=== PATIENT | male | born 1950 | race Two or more races ===

== ENCOUNTER 2020-10-20 02:07 | Inpatient (IN) | payer OTHER ==
[~2020-10-20] VITALS: Ht 160 cm; Wt 57.8 kg
[2020-10-20 04:50] LABS: Basophils # (auto) 0 10 ^3/uL (0-0.2); Basophils % (auto) 0.2 % (0.0-2.0); Eosinophils # (auto) 0 10 ^3/uL (0-0.8); Hematocrit 39.4 % (41.0-53.0); Hemoglobin 13.2 g/dL (13.5-17.5); Lymphocytes # (auto) 0.6 10 ^3/uL (0.4-5.4); Lymphocytes % (auto) 5.1 % (10.0-50.0); Mean Corpuscular Hemoglobin 29.7 pg (28.0-32.0); Mean Corpuscular Hgb Conc. 33.4 g/dL (32.0-36.0); Mean Corpuscular Volume 88.8 fL (80.0-100.0); Monocytes # (auto) 1.4 10 ^3/uL (0-1.3); Monocytes % (auto) 12.2 % (0.0-12.0); Neutrophils # (auto) 9.8 10 ^3/uL (1.6-8.6); Neutrophils % (auto) 82.5 % (37.0-80.0); Nucleated Red Blood Cells % 0.1 %; Platelet Count (auto) 413 10^3/uL (140-450); Red Blood Cells 4.44 10^6/uL (4.5-5.90); White Blood Cell 11.8 10^3/uL (4.4-10.8)
[2020-10-20 05:18] LABS: Albumin 2.2 g/dL (3.4-5.0); Anion Gap 13 (5-15); BUN/Creatinine Ratio 31.4; Blood Urea Nitrogen 37 mg/dL (7-18); Calcium 7.9 mg/dL (8.5-10.1); Carbon Dioxide 25 mmol/L (21-32); Chloride 89 mmol/L (98-107); GFR African American 78 mL/min; GFR Non-African American 65 mL/min; Lactic Acid w/Reflex 3.3 mmol/L (0.4-2.0); Magnesium 2.8 mg/dL (1.6-2.6); Potassium 4.1 mmol/L (3.5-5.1); Sodium 127 mmol/L (136-145)
[2020-10-20 05:30] LABS: Alanine Aminotransferase 37 U/L (16-61); Alkaline Phosphatase 70 U/L (45-117); Aspartate Aminotransferase 44 U/L (15-37); Bilirubin, Total 0.5 mg/dL (0.2-1.0); Lactate Dehydrogenase 481 U/L (87-241); Total Protein 6.8 g/dL (6.4-8.2)
[2020-10-20] MEDS ORDERED: AZITHROMYCIN 500MG/ 250ML 250 ML IV ONE (05:30)
[2020-10-20 05:33] LABS: CRP High Sensitivity > 19 mg/dL (< 0.3); Glucose 405 mg/dL (74-106)
[2020-10-20] MEDS ORDERED: MORPHINE SULF INJ 2 MG/ML SYRINGE 1ML IV PRN (07:30)
[2020-10-20] MEDS ORDERED: DEXTROSE (50%) 50ML SYRG IV PRN ×2 (07:30→14:45)
[2020-10-20] MEDS ORDERED: SODIUM CHLORIDE 0.9% 500 ML IV ONE (07:30)
[2020-10-20] MEDS ORDERED: SODIUM CHLORIDE 0.9% 1,000 ML IV SCH ×2 (07:30→14:45)
[2020-10-20] MEDS ORDERED: ONDANSETRON HCL 4 MG/2 ML VIAL IV PRN (07:30)
[2020-10-20] MEDS ORDERED: NITROGLYCERIN 0.4 MG SL TAB SL PRN (07:30)
[2020-10-20] MEDS ORDERED: TEMAZEPAM 15 MG CAP PO PRN (07:30)
[2020-10-20] MEDS ORDERED: ACETAMINOPHEN 325 MG TAB PO PRN (07:30)
[2020-10-20] MEDS: ACCU-CHEK COMFORT CURVE STRIP VI SCH ×4 (08:34→18:03)
[2020-10-20] MEDS: InsuLIN REG 1unit/0.01ml Soln (100units/ml) SC SCH ×3 (08:41→18:00)
[2020-10-20] MEDS ORDERED: DexAMETHasone INJECTION 10 MG in D5W 5% 50 ML IV SCH (10:00)
[2020-10-20] MEDS ORDERED: ENOXAPARIN SOD 40 MG/0.4 ML SYRINGE SC SCH ×2 (10:00)
[2020-10-20] MEDS: DexAMETHasone SOD PHOS 10MG/1ML VIAL INJ IV SCH (10:22)
[2020-10-20] MEDS: ZINC SULFATE 220mg CAP or TAB PO SCH (10:22)
[2020-10-20] MEDS: FAMOTIDINE 20 MG TAB PO SCH ×2 (10:22→22:00)
[2020-10-20] MEDS: DOXYCYCLINE 100MG/250ML 250 ML IV SCH ×2 (10:22→22:00)
[2020-10-20] MEDS: ASCORBIC ACID 1,000 MG TAB PO SCH (10:22)
[2020-10-20] MEDS: CHOLECALCIFEROL (VITD3) 2,000 UNIT CAP PO SCH (10:26)
[2020-10-20] MEDS ORDERED: cefTRIAXone 1GM/50ML D5W 50 ML IV ONE (13:00)
[2020-10-20] MEDS ORDERED: IOHEXOL 350 MG/ML 100ML IJ ONE (13:54)
[2020-10-20] MEDS: ALBUTEROL SULF HFA 90MCG INH 200DOSE IN SCH ×2 (14:00→22:00)
[2020-10-20] MEDS ORDERED: ENOXAPARIN SOD 60 MG/0.6 ML SYRINGE SC SCH (18:00)
[2020-10-20] MEDS ORDERED: DexAMETHasone SOD PHOS 10MG/1ML VIAL INJ IV ONE (19:30)
[2020-10-20] MEDS: BUDESONIDE (INHALATION) 180 MCG IH IN SCH (22:00)
[2020-10-20] MEDS: INSULIN LANTUS (GLARGINE) 1 /0.01ml (100units/ml) SC SCH (22:00)
[2020-10-21 01:16] LABS: Urine Bacteria FEW /hpf (None Seen); Urine Blood Negative /uL (Negative); Urine WBC 3 /hpf (0 - 3)
[2020-10-21 05:05] LABS: Basophils # (auto) 0 10 ^3/uL (0-0.2); Basophils % (auto) 0.1 % (0.0-2.0); Eosinophils # (auto) 0 10 ^3/uL (0-0.8); Hematocrit 38.3 % (41.0-53.0); Hemoglobin 12.8 g/dL (13.5-17.5); Lymphocytes # (auto) 0.6 10 ^3/uL (0.4-5.4); Mean Corpuscular Hemoglobin 29.4 pg (28.0-32.0); Mean Corpuscular Hgb Conc. 33.5 g/dL (32.0-36.0); Mean Corpuscular Volume 87.6 fL (80.0-100.0); Monocytes % (auto) 6.8 % (0.0-12.0); Neutrophils # (auto) 13.5 10 ^3/uL (1.6-8.6); Neutrophils % (auto) 89.1 % (37.0-80.0); Nucleated Red Blood Cells % 0.1 %; Platelet Count (auto) 420 10^3/uL (140-450); Red Blood Cells 4.38 10^6/uL (4.5-5.90); White Blood Cell 15.2 10^3/uL (4.4-10.8)
[2020-10-21 05:32] LABS: Albumin 2.1 g/dL (3.4-5.0); BUN/Creatinine Ratio 39.7; Bilirubin, Total 0.5 mg/dL (0.2-1.0); Calcium 7.6 mg/dL (8.5-10.1); Potassium 3.3 mmol/L (3.5-5.1); Total Protein 6.9 g/dL (6.4-8.2)
[2020-10-21] MEDS: InsuLIN REG 1unit/0.01ml Soln (100units/ml) SC SCH ×5 (06:00→22:09)
[2020-10-21] MEDS: ACCU-CHEK COMFORT CURVE STRIP VI SCH ×5 (06:00→22:09)
[2020-10-21] MEDS: ALBUTEROL SULF HFA 90MCG INH 200DOSE IN SCH ×3 (06:00→20:00)
[2020-10-21] MEDS: cefTRIAXone 1GM/50ML D5W 50 ML IV SCH (09:00)
[2020-10-21] MEDS ORDERED: REMDESIVIR PER PHARMACY IV SCH (09:30)
[2020-10-21] MEDS ORDERED: POTASSIUM CHL 20 Meq TABLET PO SCH (10:00)
[2020-10-21] MEDS ORDERED: ENOXAPARIN SOD 40 MG/0.4 ML SYRINGE SC SCH (10:00)
[2020-10-21] MEDS: BUDESONIDE (INHALATION) 180 MCG IH IN SCH ×2 (10:00→20:00)
[2020-10-21 10:29] LABS: INR 1.06 (0.9-1.15); Partial Thromboplastin Time 25.8 sec (23.0-31.2)
[2020-10-21] MEDS: DexAMETHasone SOD PHOS 10MG/1ML VIAL INJ IV SCH (10:39)
[2020-10-21] MEDS: DOXYCYCLINE 100MG/250ML 250 ML IV SCH ×2 (10:40→21:54)
[2020-10-21] MEDS: CHOLECALCIFEROL (VITD3) 2,000 UNIT CAP PO SCH (10:40)
[2020-10-21] MEDS: ZINC SULFATE 220mg CAP or TAB PO SCH (10:40)
[2020-10-21] MEDS: ASCORBIC ACID 1,000 MG TAB PO SCH (10:40)
[2020-10-21] MEDS: FUROSEMIDE 40 MG/4 ML VIAL IV SCH (10:40)
[2020-10-21] MEDS: FAMOTIDINE 20 MG TAB PO SCH ×2 (10:40→21:53)
[2020-10-21] MEDS ORDERED: guaiFENesin-DM 100/10mg/5ml SYR PO PRN (13:00)
[2020-10-21] MEDS: ENOXAPARIN SOD 60 MG/0.6 ML SYRINGE SC SCH (15:29)
[2020-10-21 17:10] VITALS: BP 165/89
[2020-10-21 17:25] VITALS: BP 164/87
[2020-10-21] MEDS: Glucerna Carbsteady SHAKE Vanilla 8oz PO SCH (17:33)
[2020-10-21 17:55] VITALS: BP 159/80
[2020-10-21 18:25] VITALS: BP 156/87
[2020-10-21 21:00] VITALS: BP 159/93
[2020-10-21] MEDS ORDERED: DexAMETHasone SOD PHOS 10MG/1ML VIAL INJ IV SCH (22:00)
[2020-10-21] MEDS: INSULIN LANTUS (GLARGINE) 1 /0.01ml (100units/ml) SC SCH ×2 (22:00→22:12)
[2020-10-22] MEDS ORDERED: ETOMIDATE (2MG/ML) 20ML VIAL IV ONE (04:49)
[2020-10-22] MEDS ORDERED: SUCCINYLCHOLINE CHLORIDE 20 MG/ML 10ML VIAL IV ONE (04:49)
[2020-10-22 05:00] VITALS: BP 145/76
[2020-10-22] MEDS ORDERED: HALOPERIDOL LACTATE 5 MG/ML INJ VIAL ONE (05:03)
[2020-10-22] MEDS ORDERED: HALOPERIDOL LACTATE 5 MG/ML INJ VIAL IM ONE (05:15)
[2020-10-22] MEDS: ACCU-CHEK COMFORT CURVE STRIP VI SCH ×3 (06:00→17:01)
[2020-10-22] MEDS: InsuLIN REG 1unit/0.01ml Soln (100units/ml) SC SCH ×3 (06:00→17:03)
[2020-10-22] MEDS: BUDESONIDE (INHALATION) 180 MCG IH IN SCH ×2 (06:35→21:30)
[2020-10-22] MEDS: ALBUTEROL SULF HFA 90MCG INH 200DOSE IN SCH (06:35)
[2020-10-22 08:00] VITALS: BP 150/87
[2020-10-22] MEDS: Glucerna Carbsteady SHAKE Vanilla 8oz PO SCH (08:30)
[2020-10-22 09:00] VITALS: BP 150/87
[2020-10-22] MEDS ORDERED: POTASSIUM CHLORIDE 20 MEQ, LIDOCAINE 1% (LOCAL ANESTH.) 2 ML in SODIUM CHL 0.9% 100 ML IV ONE (10:45)
[2020-10-22] MEDS: cefTRIAXone 1GM/50ML D5W 50 ML IV SCH (11:26)
[2020-10-22] MEDS: FUROSEMIDE 40 MG/4 ML VIAL IV SCH (11:26)
[2020-10-22] MEDS: DOXYCYCLINE 100MG/250ML 250 ML IV SCH ×2 (11:27→22:27)
[2020-10-22 11:36] LABS: Hemoglobin 13.6 g/dL (13.5-17.5)
[2020-10-22 11:38] LABS: Hematocrit 40.3 % (41.0-53.0); Mean Corpuscular Hemoglobin 29.3 pg (28.0-32.0); Mean Corpuscular Hgb Conc. 33.8 g/dL (32.0-36.0); Mean Corpuscular Volume 86.6 fL (80.0-100.0); Platelet Count (auto) 449 10^3/uL (140-450); Red Blood Cells 4.65 10^6/uL (4.5-5.90); Red Cell Distribution Width 12.8 % (11.8-14.3); White Blood Cell 19.4 10^3/uL (4.4-10.8)
[2020-10-22 11:49] LABS: Basophils % (manual) 0 (0.0-2.0); Blast Cells 0; Eosinophils % (manual) 0 (0-7); Myelocytes % 0; Promyelocytes % 0; Reactive Lymphocytes 0
[2020-10-22 11:54] LABS: Albumin 2.2 g/dL (3.4-5.0); BUN/Creatinine Ratio 41.1; Calcium 7.8 mg/dL (8.5-10.1); Potassium 3.5 mmol/L (3.5-5.1)
[2020-10-22 12:00] VITALS: BP 135/74
[2020-10-22 12:14] LABS: Band Neutrophils % (manual) 6; Lymphocytes % (manual) 1 (10.0-50.0); Metamyelocytes % 1; Monocytes % (manual) 7 (0-12)
[2020-10-22 12:26] LABS: Bilirubin, Total 0.6 mg/dL (0.2-1.0); Total Protein 6.6 g/dL (6.4-8.2)
[2020-10-22] MEDS: DexAMETHasone SOD PHOS 10MG/1ML VIAL INJ IV SCH (13:03)
[2020-10-22] MEDS: LORazepam 2MG/ML-1ML VIAL IV PRN (13:06)
[2020-10-22] MEDS: ENOXAPARIN SOD 60 MG/0.6 ML SYRINGE SC SCH (13:26)
[2020-10-22 16:59] VITALS: BP 119/71
[2020-10-22] MEDS ORDERED: REMDESIVIR 200 MG in NS 210ml LOADING DOSE ADULT IV ONE (17:00)
[2020-10-22 22:00] VITALS: BP 150/87
[2020-10-22] MEDS: FAMOTIDINE (10MG/ML) 2ML VL IV SCH (22:27)
[2020-10-22] MEDS: INSULIN LANTUS (GLARGINE) 1 /0.01ml (100units/ml) SC SCH (22:34)
[2020-10-23] MEDS: ACCU-CHEK COMFORT CURVE STRIP VI SCH ×4 (00:38→18:05)
[2020-10-23] MEDS: InsuLIN REG 1unit/0.01ml Soln (100units/ml) SC SCH ×4 (00:39→18:06)
[2020-10-23] MEDS: ENOXAPARIN SOD 60 MG/0.6 ML SYRINGE SC SCH ×2 (02:50→14:44)
[2020-10-23] MEDS: LORazepam 2MG/ML-1ML VIAL IV PRN ×3 (04:56→19:54)
[2020-10-23 05:00] VITALS: BP 118/69
[2020-10-23] MEDS: INSULIN LANTUS (GLARGINE) 1 /0.01ml (100units/ml) SC SCH ×2 (06:30→21:37)
[2020-10-23] MEDS: BUDESONIDE (INHALATION) 180 MCG IH IN SCH ×2 (06:31→21:57)
[2020-10-23 08:35] VITALS: BP 153/90
[2020-10-23] MEDS: cefTRIAXone 1GM/50ML D5W 50 ML IV SCH (09:03)
[2020-10-23] MEDS: ALBUTEROL SULF HFA 90MCG INH 200DOSE IN PRN ×2 (09:08→21:57)
[2020-10-23] MEDS: FUROSEMIDE 40 MG/4 ML VIAL IV SCH (10:11)
[2020-10-23] MEDS: DexAMETHasone SOD PHOS 10MG/1ML VIAL INJ IV SCH (10:11)
[2020-10-23] MEDS: FAMOTIDINE (10MG/ML) 2ML VL IV SCH ×2 (10:11→21:37)
[2020-10-23] MEDS: DOXYCYCLINE 100MG/250ML 250 ML IV SCH (10:12)
[2020-10-23 10:53] LABS: Basophils # (auto) 0 10 ^3/uL (0-0.2); Basophils % (auto) 0.2 % (0.0-2.0); Eosinophils # (auto) 0 10 ^3/uL (0-0.8); Hematocrit 40.3 % (41.0-53.0); Hemoglobin 13.3 g/dL (13.5-17.5); Lymphocytes # (auto) 0.5 10 ^3/uL (0.4-5.4); Lymphocytes % (auto) 2.4 % (10.0-50.0); Mean Corpuscular Hgb Conc. 33.1 g/dL (32.0-36.0); Mean Corpuscular Volume 87.6 fL (80.0-100.0); Monocytes # (auto) 1.4 10 ^3/uL (0-1.3); Monocytes % (auto) 6.3 % (0.0-12.0); Neutrophils # (auto) 20.4 10 ^3/uL (1.6-8.6); Neutrophils % (auto) 91.1 % (37.0-80.0); Nucleated Red Blood Cells % 0.2 %; Platelet Count (auto) 443 10^3/uL (140-450); Red Cell Distribution Width 13.3 % (11.8-14.3); White Blood Cell 22.3 10^3/uL (4.4-10.8)
[2020-10-23 11:10] LABS: Albumin 2.2 g/dL (3.4-5.0); BUN/Creatinine Ratio 40.3; Calcium 7.8 mg/dL (8.5-10.1); Potassium 3.6 mmol/L (3.5-5.1)
[2020-10-23 11:13] LABS: Bilirubin, Total 0.5 mg/dL (0.2-1.0)
[2020-10-23] MEDS ORDERED: VANCOMYCIN PER PHARMACY 0 MG IV SCH (12:45)
[2020-10-23 13:25] VITALS: BP 158/88
[2020-10-23] MEDS ORDERED: cloNIDine HCL 0.1 MG TAB PO PRN (14:00)
[2020-10-23] MEDS: HALOPERIDOL LACTATE 5 MG/ML INJ VIAL IM PRN (14:04)
[2020-10-23] MEDS: VANCOMYCIN 1GM/250ML 250 ML IV SCH (14:44)
[2020-10-23 16:50] VITALS: BP 148/82
[2020-10-23] MEDS: PIPERACILLIN-TAZOB 3.375GM 100 ML IV SCH (18:31)
[2020-10-23] MEDS: REMDESIVIR 100 MG in SODIUM CHL 0.9% 250 ML IV SCH (18:31)
[2020-10-23 21:00] VITALS: BP 130/74
[2020-10-24] MEDS: PIPERACILLIN-TAZOB 3.375GM 100 ML IV SCH ×4 (00:34→18:32)
[2020-10-24] MEDS: ACCU-CHEK COMFORT CURVE STRIP VI SCH ×4 (00:34→18:15)
[2020-10-24] MEDS: InsuLIN REG 1unit/0.01ml Soln (100units/ml) SC SCH ×4 (00:46→18:00)
[2020-10-24] MEDS: ENOXAPARIN SOD 60 MG/0.6 ML SYRINGE SC SCH ×2 (01:22→14:26)
[2020-10-24] MEDS: VANCOMYCIN 1GM/250ML 250 ML IV SCH ×3 (01:22→21:02)
[2020-10-24 05:00] VITALS: BP 156/91
[2020-10-24 05:40] LABS: Basophils # (auto) 0.1 10 ^3/uL (0-0.2); Basophils % (auto) 0.5 % (0.0-2.0); Eosinophils # (auto) 0 10 ^3/uL (0-0.8); Hematocrit 38.7 % (41.0-53.0); Hemoglobin 12.7 g/dL (13.5-17.5); Lymphocytes # (auto) 0.4 10 ^3/uL (0.4-5.4); Lymphocytes % (auto) 1.6 % (10.0-50.0); Mean Corpuscular Hemoglobin 28.8 pg (28.0-32.0); Mean Corpuscular Volume 87.4 fL (80.0-100.0); Monocytes # (auto) 1.1 10 ^3/uL (0-1.3); Monocytes % (auto) 4.7 % (0.0-12.0); Neutrophils # (auto) 21.6 10 ^3/uL (1.6-8.6); Neutrophils % (auto) 93.2 % (37.0-80.0); Platelet Count (auto) 363 10^3/uL (140-450); Red Blood Cells 4.42 10^6/uL (4.5-5.90); White Blood Cell 23.2 10^3/uL (4.4-10.8)
[2020-10-24 06:01] LABS: Albumin 2.1 g/dL (3.4-5.0); BUN/Creatinine Ratio 38.7; Potassium 3.3 mmol/L (3.5-5.1)
[2020-10-24 06:04] LABS: Bilirubin, Total 0.7 mg/dL (0.2-1.0); Total Protein 6.5 g/dL (6.4-8.2)
[2020-10-24] MEDS: INSULIN LANTUS (GLARGINE) 1 /0.01ml (100units/ml) SC SCH ×2 (06:43→22:00)
[2020-10-24] MEDS: BUDESONIDE (INHALATION) 180 MCG IH IN SCH ×2 (07:25→19:10)
[2020-10-24 09:00] VITALS: BP 144/88
[2020-10-24] MEDS: FAMOTIDINE (10MG/ML) 2ML VL IV SCH ×2 (09:08→23:30)
[2020-10-24] MEDS: DexAMETHasone SOD PHOS 10MG/1ML VIAL INJ IV SCH (09:08)
[2020-10-24] MEDS: FUROSEMIDE 40 MG/4 ML VIAL IV SCH (09:15)
[2020-10-24] MEDS: LORazepam 2MG/ML-1ML VIAL IV PRN ×2 (10:12→18:33)
[2020-10-24] MEDS ORDERED: LABETALOL HCL 5 MG/ML 4ML SYRINGE IV PRN (10:30)
[2020-10-24 13:00] VITALS: BP 136/79
[2020-10-24] MEDS: HALOPERIDOL LACTATE 5 MG/ML INJ VIAL IM PRN (14:22)
[2020-10-24] MEDS: REMDESIVIR 100 MG in SODIUM CHL 0.9% 250 ML IV SCH (17:47)
[2020-10-24 18:05] VITALS: BP 128/78
[2020-10-24] MEDS: ALBUTEROL SULF HFA 90MCG INH 200DOSE IN PRN (20:40)
[2020-10-24 22:00] VITALS: BP 146/79
[2020-10-25] MEDS: ENOXAPARIN SOD 60 MG/0.6 ML SYRINGE SC SCH ×2 (02:00→13:38)
[2020-10-25] MEDS: LORazepam 2MG/ML-1ML VIAL IV PRN ×2 (02:33→16:02)
[2020-10-25 05:32] VITALS: BP 126/68
[2020-10-25] MEDS: InsuLIN REG 1unit/0.01ml Soln (100units/ml) SC SCH ×3 (06:00→17:49)
[2020-10-25] MEDS: PIPERACILLIN-TAZOB 3.375GM 100 ML IV SCH ×5 (06:00→18:38)
[2020-10-25] MEDS: ACCU-CHEK COMFORT CURVE STRIP VI SCH ×3 (06:00→17:49)
[2020-10-25 06:41] LABS: Basophils # (auto) 0 10 ^3/uL (0-0.2); Basophils % (auto) 0.2 % (0.0-2.0); Eosinophils # (auto) 0 10 ^3/uL (0-0.8); Eosinophils % (auto) 0.1 % (0.0-7.0); Hematocrit 38.1 % (41.0-53.0); Hemoglobin 12.7 g/dL (13.5-17.5); Lymphocytes # (auto) 0.5 10 ^3/uL (0.4-5.4); Lymphocytes % (auto) 2.4 % (10.0-50.0); Mean Corpuscular Hemoglobin 29.2 pg (28.0-32.0); Mean Corpuscular Hgb Conc. 33.3 g/dL (32.0-36.0); Mean Corpuscular Volume 87.8 fL (80.0-100.0); Monocytes # (auto) 1.1 10 ^3/uL (0-1.3); Monocytes % (auto) 5.1 % (0.0-12.0); Neutrophils # (auto) 20.1 10 ^3/uL (1.6-8.6); Neutrophils % (auto) 92.2 % (37.0-80.0); Platelet Count (auto) 352 10^3/uL (140-450); Red Blood Cells 4.34 10^6/uL (4.5-5.90); Red Cell Distribution Width 13.5 % (11.8-14.3); White Blood Cell 21.8 10^3/uL (4.4-10.8)
[2020-10-25] MEDS: BUDESONIDE (INHALATION) 180 MCG IH IN SCH ×2 (06:42→22:00)
[2020-10-25 07:00] LABS: Potassium 3.2 mmol/L (3.5-5.1)
[2020-10-25] MEDS: INSULIN LANTUS (GLARGINE) 1 /0.01ml (100units/ml) SC SCH (07:00)
[2020-10-25] MEDS: VANCOMYCIN 1GM/250ML 250 ML IV SCH ×2 (07:00→17:36)
[2020-10-25 07:05] LABS: BUN/Creatinine Ratio 35.7
[2020-10-25 09:00] VITALS: BP 134/76
[2020-10-25] MEDS ORDERED: DEXTROSE (50%) 50ML SYRG IV PRN (10:00)
[2020-10-25] MEDS: FAMOTIDINE (10MG/ML) 2ML VL IV SCH ×2 (10:25→22:00)
[2020-10-25] MEDS: FUROSEMIDE 40 MG/4 ML VIAL IV SCH (10:28)
[2020-10-25] MEDS: DexAMETHasone SOD PHOS 10MG/1ML VIAL INJ IV SCH (10:58)
[2020-10-25] MEDS ORDERED: ACCU-CHEK COMFORT CURVE STRIP VI SCH (12:00)
[2020-10-25] MEDS ORDERED: InsuLIN REG 1unit/0.01ml Soln (100units/ml) SC SCH (12:00)
[2020-10-25] MEDS ORDERED: TPN PER PHARMACY 0 ML IV SCH (12:45)
[2020-10-25 13:24] LABS: Phosphorus 2.6 mg/dL (2.5-4.90)
[2020-10-25 13:30] LABS: Pre Albumin 4.6 mg/dL (20.0-40.0)
[2020-10-25] MEDS: POTASSIUM CHL 20MEQ/100ML 100 ML IV SCH ×2 (13:38→15:31)
[2020-10-25] MEDS: ALBUTEROL SULF HFA 90MCG INH 200DOSE IN PRN (14:16)
[2020-10-25] MEDS: REMDESIVIR 100 MG in SODIUM CHL 0.9% 250 ML IV SCH (16:56)
[2020-10-25 17:00] VITALS: BP 148/84
[2020-10-25] MEDS ORDERED: DEXTROSE (50%) 50ML SYRG IV SCH (18:00)
[2020-10-25] MEDS ORDERED: AMINO ACID INFUSION IN D5W 2,000 ML IV NR (20:00)
[2020-10-25 22:00] VITALS: BP 154/75
[2020-10-26] MEDS: ACCU-CHEK COMFORT CURVE STRIP VI SCH ×4 (00:55→23:40)
[2020-10-26] MEDS: PIPERACILLIN-TAZOB 3.375GM 100 ML IV SCH ×5 (01:00→23:40)
[2020-10-26] MEDS: InsuLIN REG 1unit/0.01ml Soln (100units/ml) SC SCH ×4 (01:00→23:56)
[2020-10-26] MEDS: ENOXAPARIN SOD 60 MG/0.6 ML SYRINGE SC SCH ×2 (02:00→14:00)
[2020-10-26] MEDS: VANCOMYCIN 1GM/250ML 250 ML IV SCH ×3 (03:00→22:24)
[2020-10-26 05:00] VITALS: BP 156/87
[2020-10-26 06:33] LABS: Potassium 3.7 mmol/L (3.5-5.1)
[2020-10-26] MEDS: BUDESONIDE (INHALATION) 180 MCG IH IN SCH ×2 (06:38→22:00)
[2020-10-26 06:58] LABS: BUN/Creatinine Ratio 40.7; Bilirubin, Total 0.6 mg/dL (0.2-1.0); Calcium 8.5 mg/dL (8.5-10.1); Magnesium 3.2 mg/dL (1.6-2.6); Phosphorus 2.4 mg/dL (2.5-4.90); Total Protein 6.9 g/dL (6.4-8.2)
[2020-10-26 08:37] LABS: INR 1.28 (0.9-1.15); Partial Thromboplastin Time 33.3 sec (23.0-31.2)
[2020-10-26 09:00] VITALS: BP 153/78
[2020-10-26 09:18] LABS: Basophils # (auto) 0 10 ^3/uL (0-0.2); Basophils % (auto) 0.3 % (0.0-2.0); Eosinophils # (auto) 0 10 ^3/uL (0-0.8); Hematocrit 41.6 % (41.0-53.0); Hemoglobin 13.3 g/dL (13.5-17.5); Lymphocytes # (auto) 0.4 10 ^3/uL (0.4-5.4); Mean Corpuscular Hemoglobin 28.6 pg (28.0-32.0); Mean Corpuscular Hgb Conc. 31.9 g/dL (32.0-36.0); Mean Corpuscular Volume 89.7 fL (80.0-100.0); Monocytes # (auto) 1.6 10 ^3/uL (0-1.3); Monocytes % (auto) 8.5 % (0.0-12.0); Neutrophils # (auto) 16.6 10 ^3/uL (1.6-8.6); Neutrophils % (auto) 89.2 % (37.0-80.0); Platelet Count (auto) 327 10^3/uL (140-450); Red Blood Cells 4.64 10^6/uL (4.5-5.90); Red Cell Distribution Width 13.9 % (11.8-14.3); White Blood Cell 18.7 10^3/uL (4.4-10.8)
[2020-10-26] MEDS: DexAMETHasone SOD PHOS 10MG/1ML VIAL INJ IV SCH (09:48)
[2020-10-26] MEDS: FUROSEMIDE 40 MG/4 ML VIAL IV SCH (09:48)
[2020-10-26] MEDS: FAMOTIDINE (10MG/ML) 2ML VL IV SCH ×2 (09:48→21:20)
[2020-10-26] MEDS ORDERED: DEXTROSE (50%) 50ML SYRG IV PRN (12:45)
[2020-10-26] MEDS ORDERED: LIDOCAINE 1% (LOCAL ANESTH.) PF 5ml SDV ID ONE (17:15)
[2020-10-26] MEDS: REMDESIVIR 100 MG in SODIUM CHL 0.9% 250 ML IV SCH (19:38)
[2020-10-26] MEDS: SODIUM CHLOR 0.9% PF (SALINE LOCK) 10ML VIAL/SYR IV SCH (21:20)
[2020-10-26] MEDS: PPN PER PHARMACY IV NR ×8 (21:27)
[2020-10-26 22:00] VITALS: BP 152/87
[2020-10-26] MEDS: LORazepam 2MG/ML-1ML VIAL IV PRN (22:23)
[2020-10-27] VITALS (9 sets, daily range): BP systolic 146–159; BP diastolic 70–99
[2020-10-27] MEDS: ALBUTEROL SULF HFA 90MCG INH 200DOSE IN PRN (00:51)
[2020-10-27] MEDS: ENOXAPARIN SOD 60 MG/0.6 ML SYRINGE SC SCH ×2 (01:29→13:41)
[2020-10-27] MEDS: ACCU-CHEK COMFORT CURVE STRIP VI SCH ×4 (06:34→23:20)
[2020-10-27] MEDS: PIPERACILLIN-TAZOB 3.375GM 100 ML IV SCH ×3 (06:34→23:19)
[2020-10-27] MEDS: InsuLIN REG 1unit/0.01ml Soln (100units/ml) SC SCH ×4 (06:35→23:29)
[2020-10-27] MEDS: LORazepam 2MG/ML-1ML VIAL IV PRN (06:45)
[2020-10-27 06:47] LABS: Basophils # (auto) 0 10 ^3/uL (0-0.2); Basophils % (auto) 0.1 % (0.0-2.0); Eosinophils # (auto) 0 10 ^3/uL (0-0.8); Eosinophils % (auto) 0.1 % (0.0-7.0); Hematocrit 37.3 % (41.0-53.0); Hemoglobin 12.4 g/dL (13.5-17.5); Lymphocytes # (auto) 0.4 10 ^3/uL (0.4-5.4); Lymphocytes % (auto) 2.2 % (10.0-50.0); Mean Corpuscular Hemoglobin 29.4 pg (28.0-32.0); Mean Corpuscular Hgb Conc. 33.3 g/dL (32.0-36.0); Mean Corpuscular Volume 88.2 fL (80.0-100.0); Monocytes # (auto) 1.6 10 ^3/uL (0-1.3); Monocytes % (auto) 8.6 % (0.0-12.0); Neutrophils # (auto) 16.5 10 ^3/uL (1.6-8.6); Platelet Count (auto) 236 10^3/uL (140-450); Red Blood Cells 4.23 10^6/uL (4.5-5.90); Red Cell Distribution Width 13.6 % (11.8-14.3); White Blood Cell 18.6 10^3/uL (4.4-10.8)
[2020-10-27 07:08] LABS: Potassium 3.3 mmol/L (3.5-5.1)
[2020-10-27 07:30] LABS: BUN/Creatinine Ratio 44.4; Bilirubin, Total 0.8 mg/dL (0.2-1.0); Magnesium 2.9 mg/dL (1.6-2.6); Phosphorus 2.5 mg/dL (2.5-4.90); Total Protein 6.6 g/dL (6.4-8.2)
[2020-10-27] MEDS: DexAMETHasone SOD PHOS 10MG/1ML VIAL INJ IV SCH (09:04)
[2020-10-27] MEDS: VANCOMYCIN 1GM/250ML 250 ML IV SCH ×2 (09:04→19:02)
[2020-10-27] MEDS: FUROSEMIDE 40 MG/4 ML VIAL IV SCH (09:05)
[2020-10-27] MEDS: FAMOTIDINE (10MG/ML) 2ML VL IV SCH ×2 (09:05→21:11)
[2020-10-27] MEDS: SODIUM CHLOR 0.9% PF (SALINE LOCK) 10ML VIAL/SYR IV SCH ×2 (09:05→21:11)
[2020-10-27] MEDS: BUDESONIDE (INHALATION) 180 MCG IH IN SCH ×2 (09:53→22:00)
[2020-10-27] MEDS ORDERED: DEXTROSE (50%) 50ML SYRG IV SCH (12:15)
[2020-10-27] MEDS: POTASSIUM CHL 20MEQ/100ML 100 ML IV SCH ×2 (12:26→13:57)
[2020-10-27] MEDS: HALOPERIDOL LACTATE 5 MG/ML INJ VIAL IM PRN (16:00)
[2020-10-27] MEDS ORDERED: TPN PER PHARMACY IV NR ×9 (20:00)
[2020-10-27] MEDS: PPN PER PHARMACY IV NR ×8 (21:11)
[2020-10-28] MEDS: ENOXAPARIN SOD 60 MG/0.6 ML SYRINGE SC SCH ×2 (01:52→14:22)
[2020-10-28] MEDS: VANCOMYCIN 1GM/250ML 250 ML IV SCH ×2 (04:45→15:14)
[2020-10-28 05:20] VITALS: BP 144/75
[2020-10-28 05:51] LABS: Basophils # (auto) 0 10 ^3/uL (0-0.2); Basophils % (auto) 0.2 % (0.0-2.0); Eosinophils # (auto) 0 10 ^3/uL (0-0.8); Hematocrit 38.6 % (41.0-53.0); Hemoglobin 12.5 g/dL (13.5-17.5); Lymphocytes # (auto) 0.5 10 ^3/uL (0.4-5.4); Mean Corpuscular Hemoglobin 28.7 pg (28.0-32.0); Mean Corpuscular Hgb Conc. 32.3 g/dL (32.0-36.0); Mean Corpuscular Volume 88.8 fL (80.0-100.0); Monocytes # (auto) 1.4 10 ^3/uL (0-1.3); Monocytes % (auto) 7.9 % (0.0-12.0); Neutrophils # (auto) 15.3 10 ^3/uL (1.6-8.6); Neutrophils % (auto) 88.9 % (37.0-80.0); Nucleated Red Blood Cells % 0.1 %; Platelet Count (auto) 213 10^3/uL (140-450); Red Blood Cells 4.34 10^6/uL (4.5-5.90); Red Cell Distribution Width 13.5 % (11.8-14.3); White Blood Cell 17.2 10^3/uL (4.4-10.8)
[2020-10-28 06:11] LABS: Potassium 3.4 mmol/L (3.5-5.1)
[2020-10-28] MEDS: PIPERACILLIN-TAZOB 3.375GM 100 ML IV SCH ×3 (06:11→17:59)
[2020-10-28] MEDS: ACCU-CHEK COMFORT CURVE STRIP VI SCH ×3 (06:11→18:01)
[2020-10-28 06:22] LABS: BUN/Creatinine Ratio 40.2; Bilirubin, Total 0.8 mg/dL (0.2-1.0); Calcium 8.2 mg/dL (8.5-10.1); Magnesium 2.7 mg/dL (1.6-2.6); Phosphorus 2.9 mg/dL (2.5-4.90); Total Protein 6.8 g/dL (6.4-8.2)
[2020-10-28] MEDS: InsuLIN REG 1unit/0.01ml Soln (100units/ml) SC SCH ×3 (06:24→18:00)
[2020-10-28] MEDS: ALBUTEROL SULF HFA 90MCG INH 200DOSE IN PRN ×2 (07:25→19:17)
[2020-10-28 09:00] VITALS: BP 120/66
[2020-10-28] MEDS: BUDESONIDE (INHALATION) 180 MCG IH IN SCH ×2 (09:31→19:17)
[2020-10-28] MEDS: DexAMETHasone SOD PHOS 10MG/1ML VIAL INJ IV SCH (10:10)
[2020-10-28] MEDS: FAMOTIDINE (10MG/ML) 2ML VL IV SCH ×2 (10:12→21:12)
[2020-10-28] MEDS: FUROSEMIDE 40 MG/4 ML VIAL IV SCH (10:12)
[2020-10-28] MEDS: SODIUM CHLOR 0.9% PF (SALINE LOCK) 10ML VIAL/SYR IV SCH ×2 (10:13→21:02)
[2020-10-28] MEDS: POTASSIUM CHL 20MEQ/100ML 100 ML IV SCH ×2 (11:05→14:22)
[2020-10-28] MEDS: NYSTATIN (MOUTH-THROAT) 500,000 UNITS/5 ML SUSP MT SCH ×3 (12:10→21:02)
[2020-10-28 12:43] VITALS: BP 130/77
[2020-10-28] MEDS: METOCLOPRAMIDE HCL 5MG/ml INJ 2ml VIAL IV SCH ×2 (14:22→17:59)
[2020-10-28 17:00] VITALS: BP 141/78
[2020-10-28] MEDS ORDERED: TPN PER PHARMACY IV NR ×8 (20:00)
[2020-10-28 22:00] VITALS: BP 132/66
[2020-10-29] MEDS: ACCU-CHEK COMFORT CURVE STRIP VI SCH ×4 (00:45→17:01)
[2020-10-29] MEDS: PIPERACILLIN-TAZOB 3.375GM 100 ML IV SCH ×2 (00:45→05:53)
[2020-10-29] MEDS: METOCLOPRAMIDE HCL 5MG/ml INJ 2ml VIAL IV SCH ×2 (00:45→05:53)
[2020-10-29] MEDS: VANCOMYCIN 1GM/250ML 250 ML IV SCH (01:32)
[2020-10-29] MEDS: ENOXAPARIN SOD 60 MG/0.6 ML SYRINGE SC SCH (02:00)
[2020-10-29 04:52] VITALS: BP 127/71
[2020-10-29] MEDS: NYSTATIN (MOUTH-THROAT) 500,000 UNITS/5 ML SUSP MT SCH ×4 (05:53→21:48)
[2020-10-29 05:58] LABS: Basophils # (auto) 0 10 ^3/uL (0-0.2); Basophils % (auto) 0.2 % (0.0-2.0); Eosinophils # (auto) 0 10 ^3/uL (0-0.8); Eosinophils % (auto) 0.1 % (0.0-7.0); Hematocrit 40.6 % (41.0-53.0); Hemoglobin 12.1 g/dL (13.5-17.5); Lymphocytes # (auto) 0.7 10 ^3/uL (0.4-5.4); Lymphocytes % (auto) 3.6 % (10.0-50.0); Mean Corpuscular Hemoglobin 29.8 pg (28.0-32.0); Mean Corpuscular Hgb Conc. 29.7 g/dL (32.0-36.0); Mean Corpuscular Volume 100.2 fL (80.0-100.0); Monocytes # (auto) 1.3 10 ^3/uL (0-1.3); Neutrophils # (auto) 16.4 10 ^3/uL (1.6-8.6); Neutrophils % (auto) 89.1 % (37.0-80.0); Nucleated Red Blood Cells % 0.1 %; Platelet Count (auto) 227 10^3/uL (140-450); Red Blood Cells 4.05 10^6/uL (4.5-5.90); Red Cell Distribution Width 15.2 % (11.8-14.3); White Blood Cell 18.4 10^3/uL (4.4-10.8)
[2020-10-29] MEDS: InsuLIN REG 1unit/0.01ml Soln (100units/ml) SC SCH ×4 (06:08→17:43)
[2020-10-29 08:26] LABS: Potassium 3.5 mmol/L (3.5-5.1)
[2020-10-29 08:32] LABS: BUN/Creatinine Ratio 37.2
[2020-10-29 08:33] LABS: Albumin 1.8 g/dL (3.4-5.0); Bilirubin, Total 0.7 mg/dL (0.2-1.0); Magnesium 2.7 mg/dL (1.6-2.6); Phosphorus 2.4 mg/dL (2.5-4.90); Total Protein 6.5 g/dL (6.4-8.2)
[2020-10-29 10:00] VITALS: BP 116/60
[2020-10-29] MEDS ORDERED: SODIUM PHOSP 20MEQ(15MMOL) IN NS 100 ML IV ONE (10:00)
[2020-10-29] MEDS: BUDESONIDE (INHALATION) 180 MCG IH IN SCH ×2 (10:00→19:28)
[2020-10-29] MEDS: FAMOTIDINE (10MG/ML) 2ML VL IV SCH ×2 (11:15→21:48)
[2020-10-29] MEDS: FUROSEMIDE 40 MG/4 ML VIAL IV SCH (11:17)
[2020-10-29] MEDS: DexAMETHasone SOD PHOS 10MG/1ML VIAL INJ IV SCH (11:18)
[2020-10-29] MEDS: SODIUM CHLOR 0.9% PF (SALINE LOCK) 10ML VIAL/SYR IV SCH ×2 (11:18→21:48)
[2020-10-29] MEDS: MEROPENEM 1GM IVPB 100 ML IV SCH ×2 (13:29→19:49)
[2020-10-29 14:00] VITALS: BP 106/57
[2020-10-29 17:00] VITALS: BP 110/62
[2020-10-29] MEDS: ALBUTEROL SULF HFA 90MCG INH 200DOSE IN PRN (19:27)
[2020-10-29] MEDS ORDERED: TPN PER PHARMACY IV NR ×8 (20:00)
[2020-10-29] MEDS: LINEZOLID 600MG/300ML 300 ML IV SCH (21:48)
[2020-10-29 22:00] VITALS: BP 110/59
[2020-10-30] MEDS: ACCU-CHEK COMFORT CURVE STRIP VI SCH ×4 (00:37→17:39)
[2020-10-30] MEDS: InsuLIN REG 1unit/0.01ml Soln (100units/ml) SC SCH ×4 (00:40→17:41)
[2020-10-30] MEDS: MEROPENEM 1GM IVPB 100 ML IV SCH ×3 (04:58→20:31)
[2020-10-30 05:17] VITALS: BP 129/76
[2020-10-30] MEDS: NYSTATIN (MOUTH-THROAT) 500,000 UNITS/5 ML SUSP MT SCH ×4 (05:59→22:24)
[2020-10-30] MEDS: ALBUTEROL SULF HFA 90MCG INH 200DOSE IN PRN (06:31)
[2020-10-30] MEDS: BUDESONIDE (INHALATION) 180 MCG IH IN SCH ×2 (06:31→21:34)
[2020-10-30 07:16] LABS: Basophils # (auto) 0 10 ^3/uL (0-0.2); Basophils % (auto) 0.1 % (0.0-2.0); Eosinophils # (auto) 0 10 ^3/uL (0-0.8); Eosinophils % (auto) 0.1 % (0.0-7.0); Hematocrit 39.5 % (41.0-53.0); Lymphocytes # (auto) 0.9 10 ^3/uL (0.4-5.4); Lymphocytes % (auto) 3.8 % (10.0-50.0); Mean Corpuscular Hemoglobin 29.3 pg (28.0-32.0); Mean Corpuscular Volume 88.8 fL (80.0-100.0); Monocytes # (auto) 1.3 10 ^3/uL (0-1.3); Monocytes % (auto) 5.5 % (0.0-12.0); Neutrophils # (auto) 21.9 10 ^3/uL (1.6-8.6); Neutrophils % (auto) 90.5 % (37.0-80.0); Nucleated Red Blood Cells % 0.1 %; Platelet Count (auto) 214 10^3/uL (140-450); Red Blood Cells 4.44 10^6/uL (4.5-5.90); Red Cell Distribution Width 13.6 % (11.8-14.3); White Blood Cell 24.3 10^3/uL (4.4-10.8)
[2020-10-30 07:44] LABS: Potassium 3.7 mmol/L (3.5-5.1)
[2020-10-30 07:55] LABS: Albumin 1.8 g/dL (3.4-5.0); BUN/Creatinine Ratio 43.5; Bilirubin, Total 0.5 mg/dL (0.2-1.0); Calcium 8.1 mg/dL (8.5-10.1); Magnesium 2.8 mg/dL (1.6-2.6); Phosphorus 3.5 mg/dL (2.5-4.90); Total Protein 6.5 g/dL (6.4-8.2)
[2020-10-30 08:41] VITALS: BP 120/66
[2020-10-30] MEDS: FAMOTIDINE (10MG/ML) 2ML VL IV SCH ×2 (10:01→22:24)
[2020-10-30] MEDS: ENOXAPARIN SOD 40 MG/0.4 ML SYRINGE SC SCH (10:01)
[2020-10-30] MEDS: SODIUM CHLOR 0.9% PF (SALINE LOCK) 10ML VIAL/SYR IV SCH ×2 (10:01→22:25)
[2020-10-30] MEDS: LINEZOLID 600MG/300ML 300 ML IV SCH ×2 (10:01→22:25)
[2020-10-30 11:33] LABS: Urine Bacteria NONE SEEN /hpf (None Seen); Urine Blood 1+ /uL (Negative); Urine WBC 16 /hpf (0 - 3)
[2020-10-30 12:49] VITALS: BP 125/69
[2020-10-30] MEDS: metroNIDAZOLE 500MG/100ML 100 ML IV SCH ×2 (14:30→22:25)
[2020-10-30 17:03] VITALS: BP 123/66
[2020-10-30] MEDS ORDERED: TPN PER PHARMACY IV NR ×9 (20:00)
[2020-10-30 20:49] VITALS: BP 102/60
[2020-10-31] MEDS: InsuLIN REG 1unit/0.01ml Soln (100units/ml) SC SCH ×4 (00:13→17:34)
[2020-10-31] MEDS: ACCU-CHEK COMFORT CURVE STRIP VI SCH ×4 (00:18→17:33)
[2020-10-31] MEDS: ALBUTEROL SULF HFA 90MCG INH 200DOSE IN PRN ×2 (01:17→23:36)
[2020-10-31] MEDS: MEROPENEM 1GM IVPB 100 ML IV SCH ×3 (04:28→20:00)
[2020-10-31 05:00] VITALS: BP 127/69
[2020-10-31] MEDS: metroNIDAZOLE 500MG/100ML 100 ML IV SCH (06:06)
[2020-10-31] MEDS: NYSTATIN (MOUTH-THROAT) 500,000 UNITS/5 ML SUSP MT SCH ×4 (06:07→22:14)
[2020-10-31 06:55] LABS: Basophils # (auto) 0.1 10 ^3/uL (0-0.2); Basophils % (auto) 0.2 % (0.0-2.0); Eosinophils # (auto) 0.2 10 ^3/uL (0-0.8); Eosinophils % (auto) 0.6 % (0.0-7.0); Hematocrit 37.4 % (41.0-53.0); Hemoglobin 12.1 g/dL (13.5-17.5); Lymphocytes # (auto) 0.7 10 ^3/uL (0.4-5.4); Lymphocytes % (auto) 2.9 % (10.0-50.0); Mean Corpuscular Hgb Conc. 32.3 g/dL (32.0-36.0); Mean Corpuscular Volume 89.9 fL (80.0-100.0); Monocytes # (auto) 1.1 10 ^3/uL (0-1.3); Monocytes % (auto) 4.5 % (0.0-12.0); Neutrophils # (auto) 22.9 10 ^3/uL (1.6-8.6); Neutrophils % (auto) 91.8 % (37.0-80.0); Platelet Count (auto) 167 10^3/uL (140-450); Red Blood Cells 4.16 10^6/uL (4.5-5.90); Red Cell Distribution Width 13.8 % (11.8-14.3)
[2020-10-31] MEDS: BUDESONIDE (INHALATION) 180 MCG IH IN SCH ×2 (07:04→22:09)
[2020-10-31 07:22] LABS: Potassium 3.6 mmol/L (3.5-5.1)
[2020-10-31 07:25] LABS: Magnesium 2.4 mg/dL (1.6-2.6); Phosphorus 2.4 mg/dL (2.5-4.90)
[2020-10-31 07:45] LABS: Albumin 1.6 g/dL (3.4-5.0); BUN/Creatinine Ratio 40.5; Bilirubin, Total 0.5 mg/dL (0.2-1.0); Calcium 7.8 mg/dL (8.5-10.1); Total Protein 6.1 g/dL (6.4-8.2)
[2020-10-31 08:59] VITALS: BP 123/76
[2020-10-31] MEDS ORDERED: POTASSIUM PHOSPHATE 26.4 MEQ in SODIUM CHL 0.9% 100 ML IV ONE (09:30)
[2020-10-31] MEDS: FAMOTIDINE (10MG/ML) 2ML VL IV SCH ×2 (11:23→22:14)
[2020-10-31] MEDS: SODIUM CHLOR 0.9% PF (SALINE LOCK) 10ML VIAL/SYR IV SCH ×2 (11:23→22:14)
[2020-10-31] MEDS: LINEZOLID 600MG/300ML 300 ML IV SCH ×2 (11:28→22:14)
[2020-10-31] MEDS: ENOXAPARIN SOD 40 MG/0.4 ML SYRINGE SC SCH (11:28)
[2020-10-31 13:00] VITALS: BP 128/69
[2020-10-31 17:00] VITALS: BP 138/67
[2020-10-31] MEDS ORDERED: TPN PER PHARMACY IV NR ×11 (20:00)
[2020-10-31 22:00] VITALS: BP 111/70
[2020-11-01] MEDS: MEROPENEM 1GM IVPB 100 ML IV SCH ×3 (04:02→21:51)
[2020-11-01 05:00] VITALS: BP 130/68
[2020-11-01] MEDS: InsuLIN REG 1unit/0.01ml Soln (100units/ml) SC SCH ×4 (05:27→18:22)
[2020-11-01] MEDS: ACCU-CHEK COMFORT CURVE STRIP VI SCH ×4 (05:31→18:06)
[2020-11-01] MEDS: NYSTATIN (MOUTH-THROAT) 500,000 UNITS/5 ML SUSP MT SCH ×4 (05:31→21:51)
[2020-11-01 06:10] LABS: Hematocrit 37.9 % (41.0-53.0); Hemoglobin 12.3 g/dL (13.5-17.5); Mean Corpuscular Hemoglobin 28.9 pg (28.0-32.0); Mean Corpuscular Hgb Conc. 32.5 g/dL (32.0-36.0); Mean Corpuscular Volume 88.9 fL (80.0-100.0); Platelet Count (auto) 148 10^3/uL (140-450); Red Blood Cells 4.26 10^6/uL (4.5-5.90); Red Cell Distribution Width 13.6 % (11.8-14.3); White Blood Cell 27.7 10^3/uL (4.4-10.8)
[2020-11-01 06:22] LABS: Potassium 3.7 mmol/L (3.5-5.1)
[2020-11-01 06:23] LABS: Basophils % (manual) 0 (0.0-2.0); Blast Cells 0; Metamyelocytes % 0; Myelocytes % 0; Promyelocytes % 0; Reactive Lymphocytes 0
[2020-11-01 06:54] LABS: Albumin 1.5 g/dL (3.4-5.0); BUN/Creatinine Ratio 38.7; Bilirubin, Total 0.4 mg/dL (0.2-1.0); Calcium 7.8 mg/dL (8.5-10.1); Magnesium 2.5 mg/dL (1.6-2.6); Phosphorus 2.3 mg/dL (2.5-4.90); Pre Albumin 7.6 mg/dL (20.0-40.0); Total Protein 5.8 g/dL (6.4-8.2)
[2020-11-01] MEDS: ALBUTEROL SULF HFA 90MCG INH 200DOSE IN PRN ×2 (07:10→19:33)
[2020-11-01] MEDS: BUDESONIDE (INHALATION) 180 MCG IH IN SCH ×2 (07:10→22:01)
[2020-11-01 08:50] LABS: Band Neutrophils % (manual) 1; Eosinophils % (manual) 1 (0-7); Lymphocytes % (manual) 1 (10.0-50.0); Monocytes % (manual) 2 (0-12)
[2020-11-01 09:00] VITALS: BP 113/66
[2020-11-01] MEDS: SODIUM CHLOR 0.9% PF (SALINE LOCK) 10ML VIAL/SYR IV SCH ×2 (09:22→21:51)
[2020-11-01] MEDS: FAMOTIDINE (10MG/ML) 2ML VL IV SCH ×2 (09:22→21:51)
[2020-11-01] MEDS: LINEZOLID 600MG/300ML 300 ML IV SCH (09:23)
[2020-11-01] MEDS: ENOXAPARIN SOD 40 MG/0.4 ML SYRINGE SC SCH (10:00)
[2020-11-01 13:00] VITALS: BP 108/61
[2020-11-01 17:00] VITALS: BP 118/67
[2020-11-01] MEDS ORDERED: TPN PER PHARMACY IV NR ×9 (20:00)
[2020-11-01] MEDS ORDERED: FUROSEMIDE 20 MG/2 ML VIAL IV ONE (20:15)
[2020-11-01 22:00] VITALS: BP 123/64
[2020-11-02] MEDS: LINEZOLID 600MG/300ML 300 ML IV SCH ×3 (00:21→22:00)
[2020-11-02] MEDS: ACCU-CHEK COMFORT CURVE STRIP VI SCH ×5 (00:22→23:45)
[2020-11-02] MEDS: InsuLIN REG 1unit/0.01ml Soln (100units/ml) SC SCH ×5 (00:24→23:50)
[2020-11-02] MEDS: MEROPENEM 1GM IVPB 100 ML IV SCH ×3 (04:35→20:39)
[2020-11-02 05:00] VITALS: BP 128/75
[2020-11-02] MEDS: NYSTATIN (MOUTH-THROAT) 500,000 UNITS/5 ML SUSP MT SCH ×4 (06:00→22:20)
[2020-11-02 06:25] LABS: Basophils # (auto) 0 10 ^3/uL (0-0.2); Basophils % (auto) 0.1 % (0.0-2.0); Eosinophils # (auto) 0.3 10 ^3/uL (0-0.8); Eosinophils % (auto) 1.4 % (0.0-7.0); Hematocrit 39.6 % (41.0-53.0); Lymphocytes # (auto) 0.8 10 ^3/uL (0.4-5.4); Lymphocytes % (auto) 3.5 % (10.0-50.0); Mean Corpuscular Hemoglobin 29.6 pg (28.0-32.0); Mean Corpuscular Hgb Conc. 32.8 g/dL (32.0-36.0); Monocytes % (auto) 4.5 % (0.0-12.0); Neutrophils # (auto) 20.9 10 ^3/uL (1.6-8.6); Neutrophils % (auto) 90.5 % (37.0-80.0); Platelet Count (auto) 153 10^3/uL (140-450); Red Blood Cells 4.39 10^6/uL (4.5-5.90); White Blood Cell 23.1 10^3/uL (4.4-10.8)
[2020-11-02 06:34] LABS: Potassium 3.8 mmol/L (3.5-5.1)
[2020-11-02] MEDS: BUDESONIDE (INHALATION) 180 MCG IH IN SCH ×2 (06:41→21:13)
[2020-11-02] MEDS: ALBUTEROL SULF HFA 90MCG INH 200DOSE IN PRN ×2 (06:41→21:14)
[2020-11-02 06:49] LABS: Albumin 1.5 g/dL (3.4-5.0); BUN/Creatinine Ratio 35.3; Bilirubin, Total 0.5 mg/dL (0.2-1.0); Magnesium 2.6 mg/dL (1.6-2.6); Phosphorus 2.7 mg/dL (2.5-4.90); Total Protein 6.1 g/dL (6.4-8.2)
[2020-11-02 09:00] VITALS: BP 117/66
[2020-11-02] MEDS: FAMOTIDINE (10MG/ML) 2ML VL IV SCH ×2 (09:34→22:19)
[2020-11-02] MEDS: SODIUM CHLOR 0.9% PF (SALINE LOCK) 10ML VIAL/SYR IV SCH ×2 (09:35→22:20)
[2020-11-02] MEDS: ENOXAPARIN SOD 40 MG/0.4 ML SYRINGE SC SCH (09:36)
[2020-11-02] MEDS ORDERED: FUROSEMIDE 20 MG/2 ML VIAL IV SCH (10:00)
[2020-11-02 13:00] VITALS: BP 118/68
[2020-11-02 17:00] VITALS: BP 124/69
[2020-11-02] MEDS ORDERED: TPN PER PHARMACY IV NR ×8 (20:00)
[2020-11-02 22:00] VITALS: BP 107/58
[2020-11-03] MEDS: MEROPENEM 1GM IVPB 100 ML IV SCH (04:26)
[2020-11-03 05:00] VITALS: BP 111/55
[2020-11-03] MEDS: NYSTATIN (MOUTH-THROAT) 500,000 UNITS/5 ML SUSP MT SCH (05:47)
[2020-11-03] MEDS: ACCU-CHEK COMFORT CURVE STRIP VI SCH (05:47)
[2020-11-03] MEDS: InsuLIN REG 1unit/0.01ml Soln (100units/ml) SC SCH (06:10)
[2020-11-03] MEDS: ALBUTEROL SULF HFA 90MCG INH 200DOSE IN PRN (06:20)
[2020-11-03] MEDS: BUDESONIDE (INHALATION) 180 MCG IH IN SCH (06:20)
[2020-11-03 07:26] LABS: Potassium 3.9 mmol/L (3.5-5.1)
[2020-11-03 07:37] LABS: Albumin 1.7 g/dL (3.4-5.0); Bilirubin, Total 0.4 mg/dL (0.2-1.0); Calcium 8.5 mg/dL (8.5-10.1); Magnesium 2.8 mg/dL (1.6-2.6); Total Protein 6.4 g/dL (6.4-8.2)
[2020-11-03 07:45] LABS: Phosphorus 0.3 mg/dL (2.5-4.90)
[2020-11-03] MEDS ORDERED: SODIUM PHOSP 40 MEQ in D5W 5% 250 ML IV ONE (09:00)
[2020-11-03] MEDS ORDERED: TPN PER PHARMACY IV NR ×7 (20:00)
== END 2020-11-04 01:05 | DRG 871 ==
LOC: ER 02:07 → TELE 02:08 → TELE-CENTR 10-21 20:45 → TELE-WESTW 11-02 17:39 → WEST WING 11-03 21:24
PROVIDERS: ADMIT Nurse Practitioner; ATTEND Internal Medicine
PROC: XW13325 Transfusion of Convalescent Plasma (Nonautologous) into Peripheral Vein, Percutaneous Approach, New Technology Group 5 (ICD-10-PCS; principal; 2020-10-21)
PROC: 5A09557 Assistance with Respiratory Ventilation, Greater than 96 Consecutive Hours, Continuous Positive Airway Pressure (ICD-10-PCS; 2020-10-22)
PROC: XW033E5 Introduction of Remdesivir Anti-infective into Peripheral Vein, Percutaneous Approach, New Technology Group 5 (ICD-10-PCS; 2020-10-22)
PROC: 02HV33Z Insertion of Infusion Device into Superior Vena Cava, Percutaneous Approach (ICD-10-PCS; 2020-10-26)
PROC: 3E0436Z Introduction of Nutritional Substance into Central Vein, Percutaneous Approach (ICD-10-PCS; 2020-10-26)
PROC: 5A12012 Performance of Cardiac Output, Single, Manual (ICD-10-PCS; 2020-11-03)
DX: A41.89 Other specified sepsis (principal); U07.1 COVID-19; J96.01 Acute respiratory failure with hypoxia; E43 Unspecified severe protein-calorie malnutrition; J12.89 Other viral pneumonia; E87.1 Hypo-osmolality and hyponatremia; E87.2 Acidosis; R65.20 Severe sepsis without septic shock; T38.0X5A Adverse effect of glucocorticoids and synthetic analogues, initial encounter; E11.65 Type 2 diabetes mellitus with hyperglycemia; I10 Essential (primary) hypertension; Z68.22 Body mass index [BMI] 22.0-22.9, adult; Y92.89 Other specified places as the place of occurrence of the external cause
CPT/HCPCS: 36415; 36600; 71045; 71275; 74018; 80048; 80053; 80202; 81001; 82010; 82040; 82728; 82805; 82962; 83036; 83605; 83615; 83735; 83880; 84100; 84478; 84484; 85007; 85025; 85027; 85379; 85610; 85730; 86141; 86850; 86900; 86901; 87040; 87086; 87426; 87804; 92507; 92610; 92950; 93005; 93970; 94640; 94660; 96365; 97110; 97116; 97163; 97530; G0378; J0330; J0696; J1100; J1815; J2001; J2185; J2543; J3480; J3490; J7060